=== PATIENT | female | born 1960 | race Caucasian/White ===

== ENCOUNTER → 2016-11-28 | Outpatient (CLI) | payer MEDICARE ==
[~2016-11-28] MED LIST: ADVAIR 250-501 EACH IH; ALBUTEROL MININEB NEB; COMBIVENT INH14.7 GM INH; LISINOPRIL1 GM; PREDNISONE PO; PROAIR HFA8.5 GM; PROAIR HFA8.5 GM INH; ZESTORETIC1 TAB PO; ZITHROMAX500 MG PO
--- NOTE | ~2016-11-28 | MY6 ---
[facility] A Service of [facility] & [facility] RADIOLOGY TEXT RESULTS PATIENT: PADDY GLOVER LOCATION: [facility] : 56 UNIT #: [id number] AGE: [address]: GILLIAN TRAVIS APRN SEX: F ORDER DR: [id number] [facility] [address] [place], [place] [address] [id number] O MR#: [id number] Acc #: [id number] NAME: PADDY GLOVER : 1960 SEX: F STUDY DATE/TIME: 11/28/2016 8:42 UNIT: [facility] ROOM: STUDY DESCRIPTION: MY Mammogram Dx Dig Chinedu Attending Physician: Gillian Travis Referring Physician: Gillian Travis Ordering Physician: Gillian Travis Aprn Primary Care Physician: Gillian Travis MEDICAL IMAGING REPORT This report is preliminary unless electronic signature is present EXAM Bilateral digital diagnostic mammogram CAD DATE 11/28/2016 HISTORY Pea-sized palpable abnormality in the left breast for 1 month. The patient states that she may bumped her breast within the past month or so, stating this nodule is getting some smaller. Also complains of bilateral yellow nipple discharge for years. COMPARISON Bilateral diagnostic breast ultrasound 11/28/2016. Bilateral screening mammogram 07/23/2015. Right breast diagnostic ultrasound 10/03/2012. Bilateral screening mammogram 10/03/2012. TECHNIQUE CC, MLO and true ML views were obtained of each breast utilizing digital technique and reviewed with an FDA-approved CAD device. FINDINGS Scattered fibroglandular densities are present bilaterally. A triangular skin marker was placed over the upper outer left breast central third denoting the site of palpable complaint. On CC spot compression view, there is a 1.6 cm rounded central fat density lesion within a well-circumscribed rim, favoring benign etiology such as potential fat necrosis. Benign appearing calcification is seen. Calcifications are seen within the left breast. There are no suspicious microcalcifications or architectural distortion. Targeted sonographic imaging was performed of each breast in the subareolar regions. No ductal ectasia is seen and no subareolar mass is [facility] Service of [facility] RADIOLOGY TEXT RESULTS PATIENT: PADDY GLOVER LOCATION: [facility] : 56 UNIT #: [id number] AGE: [address]: GILLIAN TRAVIS APRN SEX: F ORDER DR: sj. At the site patient's palpable complaint in the upper outer left breast central third, an oval well-circumscribed 1.3 cm iso to slightly increased echogenicity lesion with thin peripheral fluid or cystic change is seen, which does not appear hypervascular on color Doppler imaging. It is located just deep to the skin surface. There is no abnormal acoustic shadowing. Based on both the sonographic and mammographic features, it is favored to represent benign fatty lesion such as evolving area of fat necrosis. IMPRESSION 1. Probable benign finding. 2. The palpable abnormality in the left breast is favored to represent benign etiology such as a region of fat necrosis. It is a new finding since 10/03/2012. Given the patient states she may have had trauma to her breast recently and believes the nodule is diminishing in size, I would recommend a 6-month diagnostic left breast ultrasound followup targeted to this area to ensure stability or continued improvement. Certainly, if the palpable abnormality is increasing or changing over time, the patient is encouraged to return for a repeat diagnostic imaging sooner than the 6 month follow up. These findings and recommendations were discussed in great detail with the patient. She verbalized understanding. 3. No mammographic or sonographic explanation for the patient's bilateral nipple discharge. Any further management of this should be based upon clinical assessment. Patient's over the age of 40 are entered into a reminder system with target due date for the next mammogram. A result letter will be sent to the patient. BIRADS: 3 Probably benign finding, short interval follow up suggested. Dictated by... Sana Weber M.D. THIS IS AN ELECTRONICALLY VERIFIED REPORT Sana Weber M.D. at 11/29/2016 7:[address] [facility]/aura TD: 11/28/2016 11:35 JOB #: [id number] MEDICAL IMAGING REPORT Page 1 of 1 COPY
--- NOTE | ~2016-11-28 | US17 ---
[facility] A Service [facility] RADIOLOGY TEXT RESULTS PATIENT: PADDY GLOVER LOCATION: [facility] : 56 UNIT #: [id number] AGE: [address]: GILLIAN BUCK APRN SEX: F ORDER DR: [id number] [facility] [address] [place], [place] [address] [id number] O MR#: [id number] Acc #: [id number] NAME: PADDY GLOVER : 1960 SEX: F STUDY DATE/TIME: 11/28/2016 9:14 UNIT: [facility] ROOM: STUDY DESCRIPTION: US Breast Bilateral Attending Physician: Gillian Buck Referring Physician: Gillian Buck Ordering Physician: Heber Del Valle Primary Care Physician: Gillian Buck MEDICAL IMAGING REPORT This report is preliminary unless electronic signature is present EXAM Bilateral breast diagnostic ultrasound, 11/28/2016 HISTORY Yellowish bilateral nipple discharge for years. Pea-sized abnormality of the left breast for 1 month. COMPARISON Bilateral digital diagnostic mammogram 11/18/2016, bilateral screening mammogram to 07/23/2015. FINDINGS Real-time targeted moya-scale imaging was performed of each breast. Please refer to the diagnostic mammogram report from this same day for full description of mammographic and sonographic findings and recommendations. IMPRESSION Please refer to the diagnostic mammogram report from this same date for full description of mammographic and sonographic findings and recommendations. Patients over the age of 40 are entered into a reminder system with target due date for the next mammogram. A result letter will also be sent to the patient. BIRADS: 3 Probably Benign Finding; Short interval follow-up suggested Dictated by... Sana Weber M.D. [facility] A Service [facility] RADIOLOGY TEXT RESULTS PATIENT: PADDY GLOVER LOCATION: [facility] : 56 UNIT #: [id number] AGE: [address]: HEBER, DAN[employer] SEX: F ORDER DR: THIS IS AN ELECTRONICALLY VERIFIED REPORT Sana Weber M.D. at 11/29/2016 7:10 AM Gamaliel TD: 11/28/2016 11:16 JOB #: [id number] MEDICAL IMAGING REPORT Page 1 of 1 COPY
== END | disposition home or self-care (01) ==
LOC: CMAM 08:17
DX: N63 Unspecified lump in breast (principal); N64.52 Nipple discharge
CPT/HCPCS: 76641; G0204

== ENCOUNTER → 2017-03-23 | Outpatient (CLI) | payer MEDICARE ==
--- NOTE | ~2017-03-23 | CR63 ---
[facility] A Service of [facility] & [facility] RADIOLOGY TEXT RESULTS PATIENT: PADDY GLOVER LOCATION: [facility] : 56 UNIT #: [id number] AGE: [address]: Harley Reeves MD SEX: F ORDER DR: [id number] [place] [id number] O MR#: [id number] Acc #: [id number] NAME: PADDY GLOVER : 1960 SEX: F STUDY DATE/TIME: 03/23/2017 10:03 UNIT: [facility] ROOM: STUDY DESCRIPTION: CR Chest 2 View Attending Physician: Harley Reeves M.D. Referring Physician: Harley Reeves M.D. Ordering Physician: Harley Reeves M.D. Primary Care Physician: Harley Reeves M.D. MEDICAL IMAGING REPORT This report is preliminary unless electronic signature is present. EXAM Chest PA and lateral 03/23/2017 HISTORY Shortness of breath and swelling in legs for 2 weeks, wheezing and asthma, COPD exacerbation. Benign essential hypertension. Smoking history for over 45 years. FINDINGS Two views of the chest were obtained. The lungs are clear. The heart and mediastinum have a normal contour, and the heart size is normal. No pleural effusions are seen. The lungs are hyperinflated, consistent with chronic obstructive pulmonary disease. There is no evidence of active disease. IMPRESSION Chronic obstructive pulmonary disease. No active disease. Dictated by... Rey Alex M.D. THIS IS AN ELECTRONICALLY VERIFIED REPORT Rey Alex M.D. at 03/24/2017 7:18 AM [facility]/francesca TD: 03/23/2017 14:01 JOB #: [id number] MEDICAL IMAGING REPORT Page 1 of 1
== END | disposition home or self-care (01) ==
LOC: SRAD 09:50
DX: R06.02 Shortness of breath (principal); M79.89 Other specified soft tissue disorders; J44.9 Chronic obstructive pulmonary disease, unspecified
CPT/HCPCS: 71020